=== PATIENT | male | born 1965 | race Caucasian/White ===

== ENCOUNTER 2017-02-06 10:52 | Day surgery (SDC) | payer OTHER ==
[2017-02-03 13:45] LABS: BASOPHILS 0.4 %; BASOPHILS ABSOLUTE 0.04 10/3/uL (0.0-0.16); EOSINOPHILS 1.1 %; HEMATOCRIT 46.3 % (40.0-51.0); HEMOGLOBIN 15.8 g/dL (13.6-17.8); IMMATURE GRANULOCYTES 0.1 %; IMMATURE GRANULOCYTES ABSOLUTE 0.01 10/3/uL (0.0-0.11); LYMPHOCYTES 34.2 %; LYMPHOCYTES ABSOLUTE 3.21 10/3/uL (0.67-4.30); MEAN CORPUS HGB CONC 34.1 g/dL (32.0-36.0); MEAN PLATELET VOLUME 10.4 fL (9.2-13.0); MONOCYTES 11.3 %; MONOCYTES ABSOLUTE 1.06 10/3/uL (0.21-1.20); NEUTROPHILS 52.9 %; NEUTROPHILS ABSOLUTE 4.96 10/3/uL (2.02-8.40); PLATELET COUNT 238 10/3/uL (150-400); RBC DISTRIBUTION WIDTH 12.8 % (12.0-16.0); RED CELL COUNT 4.94 10/6/uL (4.7-6.1); WHITE BLOOD CELLS 9.4 10/3/uL (4.5-10.5)
[2017-02-03 13:47] LABS: MANUAL DIFF NO %; MEAN CORPUSCULAR VOLUME 93.7 fL (80-100)
[2017-02-03 14:02] LABS: A/G RATIO 1.4 (0.7-1.9); ALKALINE PHOSPHATASE 142 U/L (45-117); BUN (BLOOD UREA NITROGEN) 8 MG/DL (6-23); CALCIUM, SERUM 9.4 MG/DL (8.5-10.4); CHLORIDE, SERUM 110 MMOL/L (96-112); CO2 (CARBON DIOXIDE) 28 MMOL/L (24-34); CREATININE 0.98 MG/DL (0.70-1.30); GFR AFRICAN AMERICAN 101 ML/MIN (>=60); GFR NON AFRICAN AMERICAN 87 ML/MIN (>=60); GLOBULIN 2.8 G/DL (2.5-4.1); GLUCOSE, SERUM 63 MG/DL (60-99); POTASSIUM, SERUM 4.6 MMOL/L (3.5-5.3); SGOT(AST) 11 U/L (5-40); SGPT(ALT) 18 U/L (5-65); SODIUM, SERUM 144 MMOL/L (135-148); TOTAL BILIRUBIN 0.3 MG/DL (0-1.2); TOTAL PROTEIN 6.8 G/DL (6.0-8.5)
--- NOTE | ~2017-02-06 | PREOPHP ---
PreOp History and Physical [address] [place]. [address] NAME: MULUGETA SCHNEIDER : 61 STATUS : PRE [facility]#: [id number] AGE: 52 ADM/REG DATE : MR#: [id number] REPORT SERV DATE: 02/05/17 DICTATED BY: PJ VEGA III DATE: 01/29/17 REPORT STATUS : Draft TRANSCRIBED BY: MODL DATE: 01/29/17 HISTORY OF PRESENT ILLNESS: This 52-year-old male comes to the operating room for partial lateral internal sphincterotomy for severe ovbbkfp-cv-szn, unresponsive to medical management. The patient complains of a 3-month history of severe rectal pain. This pain has become progressively worse and disabling to the patient such that he has not been able to work. The pain is worse after a bowel movement. The patient states that after a bowel movement, the pain will be very severe for acg-nm-icfvd hours. This has been associated with occasional bright red blood per rectum after each bowel movement. The patient has a eqhsyey-rk-lue. He has been unresponsive to medical management including stool softeners, sitz bath, and local medications. He comes now for partial lateral internal sphincterotomy. PAST MEDICAL HISTORY: 1. Hypertension. 2. Hyperlipidemia. 3. Coronary artery disease. 4. Anxiety and depression. 5. History of myocardial infarction. MEDICATIONS: Lisinopril; Coreg; Lipitor; Effient; and pravastatin. PAST SURGICAL HISTORY: Includes cholecystectomy, left inguinal hernia repair, and coronary artery stent placement. SOCIAL HISTORY: The patient has a history of heavy tobacco abuse. He has no history of alcohol use. He is . FAMILY HISTORY: Positive for hypertension and heart disease. REVIEW OF SYSTEMS: The patient complains of blood in his stool and rectal pain. His 14-point review of systems is otherwise unremarkable. PHYSICAL EXAMINATION: OBJECTIVE PHYSICAL EXAM: GENERAL: This is a male, in no acute distress. He is alert and oriented x3. VITAL SIGNS: Blood pressure 115/79, pulse 73, and temperature 98.4. HEENT: Unremarkable. NEUROLOGIC: Cranial nerves 2 through 12 are normal. LUNGS: Clear. CARDIAC: Normal. RECTAL: Reveals a deep qenhgdp-kf-qdu posteriorly. The exam is difficult secondary to severe pain and tenderness. There is no active bleeding. PreOp History and Physical [place] [address] [facility] [place]. [address] NAME: MULUGETA SCHNEIDER : 61 STATUS : PRE [facility]#: [id number] AGE: 52 ADM/REG DATE : MR#: [id number] REPORT SERV DATE: 02/05/17 DICTATED BY: PJ VEGA III DATE: 01/29/17 REPORT STATUS : Draft TRANSCRIBED BY: PHILIPP DATE: 01/29/17 ASSESSMENT: 1. This is a 52-year-old male with severe wwaqobu-ty-mbh, associated with rectal bleeding, unresponsive to medical management. 2. Tobacco abuse. 3. History of hypertension. 4. History of coronary artery disease. 5. History of coronary artery bypass graft. 6. Hyperlipidemia. 7. Anxiety and depression. PLAN: The patient comes to the operating room now for partial lateral internal sphincterotomy. This procedure, the risks, benefits, and alternatives, including not limited to the risk for bleeding, infection, failure of the fissure to heal, recurrence of the fissure, postop anal stricture requiring further surgery, postop anal fistula requiring further surgery, postoperative rectal bleeding, and unforeseen complications including deep venous thrombosis, pulmonary embolus, myocardial infarction, stroke, pneumonia, and , have been fully explained to the patient prior to surgery. The option of nonoperative treatment has been offered to the patient but declined. The fact that he will be at increased risk for thromboembolic complications while his Effient is held perioperatively has been explained as well as the increased risk of bleeding because of the use of this medication. The patient's questions have been answered. He clearly understands the risks and agrees to the surgery as planned. ANJU/PHILIPP Pj Vega III, M.D. / [id number]
--- NOTE | ~2017-02-06 | OP ---
Record Of Operation [facility] [address] [place]. [address] NAME: MULUGETA SCHNEIDER : 61 STATUS : [facility]#: [id number] AGE: 52 ADM/REG DATE : 02/06/17 MR#: [id number] REPORT SERV DATE: 02/07/17 DICTATED BY: PJ CERVANTES III DATE: 02/07/17 REPORT STATUS : Draft TRANSCRIBED BY: MODL DATE: 02/07/17 DATE OF PROCEDURE: 02/06/2017 PREOPERATIVE DIAGNOSIS: Severe fissure in ano, unresponsive to nonoperative management. POSTOPERATIVE DIAGNOSIS: Severe fissure in ano, unresponsive to nonoperative management, severe fissure in ano of the rectum. PROCEDURE: Partial lateral internal sphincterotomy. SURGEON: Pj Cervantes M.D. ANESTHESIA: General with intubation. COMPLICATIONS: None. ESTIMATED BLOOD LOSS: Less than 5 mL. SPECIMENS: None. DRAINS: None. LAP AND SPONGE COUNT: Correct x3. BRIEF HISTORY: This 52-year-old male presented with a severe very symptomatic fissure in ano. This was unresponsive to medical management. It was felt that partial lateral internal sphincterotomy was indicated. This procedure, the risks, benefits, alternatives, including not limited to the risk for bleeding, infection, pain, continued fissure formation or recurrence of the fissure unresponsive to surgical management, permanent incontinence of stool, postop anal fistula requiring further surgery, postop anal stricture requiring further surgery, and unforeseen complications including deep venous thrombosis, pulmonary embolus, myocardial infarction, stroke, pneumonia, and , were fully explained to the patient prior to surgery. The expected length of recovery was explained. The fact that he would be at increased risk for bleeding because the use of Effient and increased risk for thromboembolic complications while the Effient was held perioperatively was explained. The patient had questions, which were answered. He fully understood the risks and agreed to surgery as planned. DESCRIPTION OF PROCEDURE: After being properly identified and after discussing the risks of surgery with him again in the preoperative area, he was taken to the operating room and placed in the supine position on a stretcher adjacent to the operating room table. General anesthesia was administered and he was intubated without difficulty. He was then carefully rolled into the prone position on the operating room table. This was done very carefully and meticulously. Appropriate pads were placed beneath his chest and extremities. The perineum was prepped and draped sterilely in the usual fashion. After an appropriate Record Of Operation [place] [address] [place]. [address] NAME: MULUGETA SCHNEIDER : 61 STATUS : [facility]#: [id number] AGE: 52 ADM/REG DATE : 02/06/17 MR#: [id number] REPORT SERV DATE: 02/07/17 DICTATED BY: PJ CERVANTES III DATE: 02/07/17 REPORT STATUS : Draft TRANSCRIBED BY: PHILIPP DATE: 02/07/17 "time-out" per [facility] standards, a rectal exam was performed using a rectal retractor. The patient was noted to have a deep fissure just to the left of the midline. Rectal exam was otherwise unremarkable. A rectal retractor was placed into the rectum. A partial lateral internal sphincterotomy was performed. We placed an 11 blade knife just lateral to the rectum in the subcutaneous tissue at about the 3 o'clock position. The internal sphincter was divided under tension while being palpated. Great care was taken not to injure the mucosa. The mucosa was not perforated. Following this, the fissure itself was cauterized. Marcaine was placed in the injection site and the fissure site. A Nupercaine covered thrombin plug was placed into the rectum. Dry dressings were applied over this. Anesthesia was reversed, and the patient was taken to the recovery room in stable condition. He tolerated the procedure well. His family was informed results of surgery. The patient was discharged when stable and comfortable. His family was advised that he should remove the dressing the following day, that he could begin sitz baths at that time. They are advised that he should resume his Effient the following day and his other medications today. They are advised to use stool softeners as needed. He was asked to return in two weeks for followup or sooner if any fever, chills, undue bleeding or problems prior to that time. He was given a prescription for Percocet 7.5 one t.i.d., #12, as needed for pain, which he was advised not to use while driving. He was advised to resume his usual medications as well. ANJU/PHILIPP Pj Cervantes III, M.D. / [id number] CC: Joie Celeste III, Vicky L
[~2017-02-06 10:52] MED LIST: COREG3 PO; CRESTOR20 MG PO; EFFIENT10 PO; HALF81 PO; KLONO2 PO; PEP20 PO; PRIN5 PO
== END 2017-02-06 17:30 | disposition home or self-care (01) ==
LOC: SDC 10:52
PROVIDERS: Surgery
PROC: 0D9R0ZZ Drainage of Anal Sphincter, Open Approach (ICD-10-PCS; principal; 2017-02-06 12:30)
DX: K60.2 Anal fissure, unspecified (principal); I10 Essential (primary) hypertension; E78.5 Hyperlipidemia, unspecified; I25.10 Atherosclerotic heart disease of native coronary artery without angina pectoris; F41.9 Anxiety disorder, unspecified; F32.9 Major depressive disorder, single episode, unspecified; I25.2 Old myocardial infarction; Z90.49 Acquired absence of other specified parts of digestive tract; Z79.899 Other long term (current) drug therapy; Z95.1 Presence of aortocoronary bypass graft; E11.9 Type 2 diabetes mellitus without complications; F17.210 Nicotine dependence, cigarettes, uncomplicated; K21.9 Gastro-esophageal reflux disease without esophagitis; Z98.890 Other specified postprocedural states
CPT/HCPCS: 71020; 80053; 85025; 93005; A9270-GY; J0690; J2250; J2405; J2710; J3010